=== PATIENT | female | born 2005 | race Hispanic/Latino ===

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

== ENCOUNTER 2025-02-14 00:09 | Emergency (ER) | payer SELFPAY ==
[~2025-02-14] VITALS: Ht 149.9 cm; Wt 48.1 kg
--- NOTE | 2025-02-14 00:27 | ERN ---
ED Note History of Present Illness Stated Complaint: CHEST PRESSURE, PALPITATIONS Chief Complaint: Chest Pain Time Seen by MD: 00:20 Dictation: This is a 19-year-old female who came into the ER with complaints of midsternal chest pressure associated with palpitations. Apparently this just started an hour ago when she was laying in bed and watching a video when she suddenly experienced the pressure. No history of any known congenital heart disease. No fever chills or rigors. No hematemesis or melena. She has had anxiety for a long time and has a episodes of shaking. Temperature 97.5 pulse 89 respirations 20 blood pressure 134/85 with pulse o ximetry of 97.5% Allergies: Coded Allergies: No Known Drug Allergies (Unverified Allergy, Unknown, 01/26/19) Past Medical History Past Medical History: Other Additional Past Medical Hx: OVARIAN CYST Surgical History: None Family History: Negative LMP: January 31, 2025 RN Note Reviewed/Agreed w/PFSH: Yes Review of System Dictation Constitutional: Negative for fever,chills, and weight loss Eyes: Negative for injury, pain,redness, and discharge ENT: Negative for injury,pain or swelling Cardiovascular: Positive for chest pressure, palpitations, and denies edema Respiratory: Negative for shortness of breath, cough, and wheezing, Abdomen/GI: Negative for abdominal pain, nausea, vomiting, diarrhea, and constipation Back: Negative for injury and pain : Negative for injury, bleeding and discharge MS/Extremity: Negative for injury and deformity Skin: Negative for rash, and discoloration Neuro: Negative for headache, weakness, numbness, tingling, and seizure Psych: Negative for suicide ideation, homicidal ideation, and hallucinations Initial Vital Sign VS Vital Signs Date Time Temp Pulse Resp B/P (MAP) Pulse Ox O2 Delivery O2 Flow Rate FiO2 02/14/25 00:10 97.5 89 20 134/85 100 Room Air 02/14/25 00:40 0 21 Physical Exam Dictation General: awake, alert, NAD Head/Face: Normocephalic, atraumatic Eyes: PERRL, EOMI, vision at baseline ENT: oral cavity clear, TMs clear, no signs of infection Neck: Trachea midline, supple, no nuchal rigidity Cardiovascular: RRR, normal S1/S2, No MRGs, no JVD Respiratory: CTAB, no respiratory distress, No rales or wheezes Abdomen: Soft, non-tender, non-distended, normal bowel sounds, no guarding or rebound. Skin: Warm, dry, normal turgor, no rash MS/Extremity: Pulses equal, no cyanosis, neurovascular intact, FROM Neuro: COAx4, GCS 15, strength 5/5, CN 2-12 intact, normal cerebellar exam, normal gait, Psych: Normal behavior, mood, and affect normal Extremities-trace edema without any palpable cords, Homans sign is negative Results (Laboratory/Radiology) Laboratory/Radiology Laboratory Tests Test 02/14/25 00:23 02/14/25 01:19 White Blood Count 9.6 K/uL (4.8-10.8) Red Blood Count 4.30 MIL/uL (4.00-5.50) Hemoglobin 13.1 g/dL (12.0-16.0) Hematocrit 38.2 % (36-48) Mean Corpuscular Volume 88.8 fL (80-100) Mean Corpuscular Hemoglobin 30.5 pg (27.0-33.0) Mean Corpuscular Hemoglobin Concent 34.3 g/dL (32.0-36.0) Red Cell Distribution Width 11.8 % (11.0-15.5) Platelet Count 273 K/uL (130-400) Mean Platelet Volume 10.4 fL (7.5-10.5) Immature Granulocyte % (Auto) 0.5 % (0-1) Neutrophils (%) (Auto) 55.8 % (40.0-77.0) Lymphocytes (%) (Auto) 34.6 % (21.0-51.0) Monocytes (%) (Auto) 6.5 % (3.0-13.0) Eosinophils (%) (Auto) 2.3 % (0.0-8.0) Basophils (%) (Auto) 0.3 % (0.0-5.0) Neutrophils # (Auto) 5.4 K/uL (1.8-7.7) Lymphocytes # (Auto) 3.3 K/uL (1.0-4.8) Monocytes # (Auto) 0.6 K/uL (0.1-1.0) Eosinophils # (Auto) 0.22 K/uL (0.00-0.70) Basophils # (Auto) 0.03 K/uL (0.00-0.20) Absolute Immature Granulocyte (auto 0.05 K/uL (0-1) Nucleated Red Blood Cells 0.0 % (0.0-0.19) Sodium Level 139 mmol/L (136-145) Potassium Level 3.2 mmol/L (3.5-5.1) L Chloride Level 104 mmol/L (101-111) Carbon Dioxide Level 29 mmol/L (21-32) Blood Urea Nitrogen 11 mg/dL (7-18) Creatinine 0.6 mg/dL (0.5-1.0) Glomerular Filtration Rate Calc 133 mL/min (>90) Random Glucose 89 mg/dL (70-105) Total Calcium 8.6 mg/dL (8.5-10.1) Troponin I High Sensitivity < 4 ng/L (4-50) L B-Type Natriuretic Peptide < 5 pg/mL (0-100) Serum Test, Qualitative NEGATIVE (NEGATIVE) Urine Opiates Screen NEGATIVE (NEGATIVE) Urine Barbiturates Screen NEGATIVE (NEGATIVE) Urine Phencyclidine Screen NEGATIVE (NEGATIVE) Urine Amphetamines Screen NEGATIVE (NEGATIVE) Urine Benzodiazepines Screen NEGATIVE (NEGATIVE) Urine Cocaine Screen NEGATIVE (NEGATIVE) Urine Marijuana (THC) Screen NEGATIVE (NEGATIVE) Labs Reviewed?: Yes EKG Comment: Twelve lead EKG done on 02/14/2025 at 12:17 a.m. showed a heart rate of 88 GA interval 165, QRS 68, QT/QTC 348/421 Impression normal sinus rhythm with no acute STT wave changes noted. EKG rhythm strip-normal sinus rhythm with no acute STT wave changes. Interpreted by ER MD Dr. Méndez ED Course ED Course Orders Procedure Category Date Status Time Cbc With Differential LAB 02/14/25 Complete 00:12 Basic Metabolic Panel LAB 02/14/25 Complete 00:12 Troponin I High LAB 02/14/25 Complete Sensitivity 00:12 12 Lead Ekg Tracing- EKG 02/14/25 Logged Technical 00:12 Testing, LAB 02/14/25 Complete Serum Hcg 00:12 Chest 1vw RAD 02/14/25 Taken 00:12 B-Type Natriuretic LAB 02/14/25 Complete Peptide 00:25 Drug Screen Urine LAB 02/14/25 Complete 00:25 Vital Signs Date Time Temp Pulse Resp B/P (MAP) Pulse Ox O2 Delivery O2 Flow Rate FiO2 02/14/25 01:41 98.2 91 20 116/67 97 Room Air* 0 21 02/14/25 00:40 98.4 87 18 122/68 99 Room Air* 0 21 02/14/25 00:10 97.5 89 20 134/85 100 Room Air We will perform diagnostic labs, advanced imaging and administer medications according to the patient's complaint. Once the results are available, will review and personally interpreted the labs to rule out any acute life-threatenin g emergency the trach require immediate intervention and treatment. I will then re-evaluate the patient after treatment and diagnostic exams have return to determine whether the patient requires any further testing, can safely be discharged home or need further admission to hospital for additional treatment and evaluation. CBC with a normal limits BNP 7 showed a potassium of 3.2. Serum test is negative Twelve lead EKGs unremarkable Chest x-ray is unremarkable. I have updated the patient and her mother on all available test results and it appears that perhaps it maybe an anxiety attack with her history of shaking and feeling pressure in the chest. Her heart score is 0 and EKGs normal with a no shortness of breath. I have instructed them to follow up with the primary care physician if symptoms recur and for any additional workup. She wants to follow up with her primary care physician for anxiety also HEART Score Response (Comments) Value History: Low suspicion (0) 0 EKG: Normal 0 Age: < 45yrs (0) 0 Risk Factors: No known risk factors (0) 0 Initial Troponin: Normal limit (0) 0 HEART Score Risk: Low Risk for MACE (1-3) Total 0 Medical Decision Making MDM MDM: Differential diagnosis: Primary cardiac event, substance abuse related palpitations, hyperthyroidism, dehydration, mitral valve prolapse Rationale: Tests considered and ordered secondary to shared decision making include: Previous outside records reviewed: Old ER visits. Risk of complication and/or morbidity or mortality of patient management: None Medications-Per medication reconciliation Need for hospitalization: Patient does not meet criteria for hospitalization. Need for emergency major/minor surgery: No There are no social concerns with this patient. Prescription drug management Prescriptions will include symptomatic care Patient's prior external medical records from other ER visits were reviewed by me as indicated. Prior testing and results from previous visits were reviewed. Prior tests were taken into account with medical decision making and resource utilization, independent historian/historians were used to obtain complete medical history. I independently interpreted the test that were performed, results were reviewed by me and considered findings on radiology if ordered. Medical management and examination interpretation discussions were had by me with other qualified healthcare professionals as indicated for the patient's care. Problem List Problem List: (1) Atypical chest pain (2) Palpitations (3) Anxiety DX & DISP Disposition: Discharge Departure Impression: Primary Impression: Atypical chest pain Additional Impressions: Palpitations, Anxiety Condition: Stable Additional Instructions: Patient and the caregiver have been informed of all the diagnostic tests and the imaging conducted during the today's visit to the emergency room and has verbalized understanding of the results I have personally reviewed and interpreted all diagnostic exams performed here in the ER today as well as the vital signs documented by the nursing staff. The patient is now being discharged to home and should follow up with the primary care physician or the specialist as directed by the ER staff. Follow-up with primary care provider in 1 to 2 days. Take medications as directed here in the emergency room. Okay to continue home medications unless otherwise discussed during your visit in the emergency room today. Return to your nearest emergency room if symptoms worsen or if there is no improvement. Call 911 if you need immediate assistance. Take Tylenol or Motrin [id number] as needed and if no contraindications are present. Increase oral hydration. A wound culture or urine culture was ordered here in the emergency room department please follow-up with primary care provider and advise them to get repeat ports from our facility. If you had any Pranav wrap/splints that were applied here, please do not remove them until you see your primary care or specialty. Referrals: LASHAE CÁRDENAS (PCP) LALA MÉNDEZ MD Feb 14, 2025 00:27
[2025-02-14 00:36] LABS: CREATININE 0.6 mg/dL (0.5-1.0); POTASSIUM 3.2 mmol/L (3.5-5.1)
[2025-02-14 00:53] LABS: BASOPHILS # (AUTO) 0.03 K/uL (0.00-0.20); BASOPHILS % (AUTO) 0.3 % (0.0-5.0); EOSINOPHILS # (AUTO) 0.22 K/uL (0.00-0.70); EOSINOPHILS % (AUTO) 2.3 % (0.0-8.0); HEMATOCRIT 38.2 % (36-48); IMMATURE GRANULOCYTE ABSOLUTE 0.05 K/uL (0-1); LYMPHOCYTES # (AUTO) 3.3 K/uL (1.0-4.8); LYMPHOCYTES % (AUTO) 34.6 % (21.0-51.0); MEAN CORPUSCULAR HEMOGLOBIN 30.5 pg (27.0-33.0); MEAN CORPUSCULAR HGB CONC 34.3 g/dL (32.0-36.0); MEAN CORPUSCULAR VOLUME 88.8 fL (80-100); MONOCYTES # (AUTO) 0.6 K/uL (0.1-1.0); MONOCYTES % (AUTO) 6.5 % (3.0-13.0); NEUTROPHILS # (AUTO) 5.4 K/uL (1.8-7.7); NEUTROPHILS % (AUTO) 55.8 % (40.0-77.0); PLATELET COUNT (AUTO) 273 K/uL (130-400); RED CELL DISTRIBUTION WIDTH 11.8 % (11.0-15.5); WHITE BLOOD COUNT (AUTO) 9.6 K/uL (4.8-10.8)
[2025-02-14 01:34] LABS: AMPHET/METH SCREEN,URINE NEGATIVE (NEGATIVE); BARBITURATE SCREEN, URINE NEGATIVE (NEGATIVE); BENZODIAZEPINES SCREEN,URINE NEGATIVE (NEGATIVE); CANNABINOID SCREEN,URINE NEGATIVE (NEGATIVE); COCAINE SCREEN,URINE NEGATIVE (NEGATIVE); OPIATE SCREEN,URINE NEGATIVE (NEGATIVE); PHENCYCLIDINE SCREEN,URINE NEGATIVE (NEGATIVE)
[2025-02-14 01:41] VITALS: BP 116/67; PULSE 91; RESP 20; TEMP 98.3; O2SAT 97
--- NOTE | 2025-02-14 08:43 | HMCIMG ---
Exam Type: CHEST 1VW Clinical Information: CP Comparison: None Findings: The lungs are clear of infiltrates. The heart is normal in size. The bony and soft tissue structures of the chest are unremarkable. Impression: Clear lungs.
--- NOTE | 2025-02-14 09:20 | EKG ---
[facility] Test Date: 2025-02-14 Test Time: 00:17:50 Pat Name: GUILLERMINA WILKINSON Department: ED Room: Gender: F Saw Runner: [id number] : 2005 Requested By: LALA MÉNDEZ Order Number: [id number] Reading MD: Bernard Jett Measurements Intervals [place] Rate: 88 P: 23 [place]: 165 QRS: 11 QRSD: 68 T: -1 QT: 348 QTc: 421 Interpretive Statements Sinus rhythm No previous ECG available for comparison Electronically Signed On 02-14-2025 17:34:17 CDT by Bernard Jett Please click the below link to view image of tracing.
== END 2025-02-14 01:58 | disposition home or self-care (01) ==
LOC: EDH 00:09
DX: R07.89 Other chest pain (principal); R00.2 Palpitations; F41.9 Anxiety disorder, unspecified
CPT/HCPCS: 36415; 71045; 80048; 80305; 83880; 84484; 84703; 85025; 93005; 99285